=== PATIENT | male | born 1955 | race Caucasian/White ===

== ENCOUNTER 2023-05-19 22:50 | Inpatient (IN) | payer OTHER ==
[~2023-05-19] VITALS: Ht 177.8 cm; Wt 107.0 kg
[2023-05-19 22:54] VITALS: BP 58/35; PULSE 84; RESP 16; TEMP 97.8
[2023-05-19 23:05] VITALS: BP 111/67; PULSE 88; PULSE 90; RESP 22; O2SAT 99
[2023-05-19] MEDS ORDERED: NACL 0.9% 1,000 ML IV ONE (23:05)
[2023-05-19 23:25] LABS: BASOPHILS # (AUTO) 0.2 K/uL (0.00-0.22); BASOPHILS % (AUTO) 0.8 % (0.0-2.0); EOSINOPHILS # (AUTO) 0.3 K/uL (0-0.4); EOSINOPHILS % (AUTO) 1.4 % (0.0-4.0); HEMATOCRIT 22.7 % (36-52); HEMOGLOBIN 7.3 g/dL (12.0-18.0); LYMPHOCYTES # (AUTO) 0.7 K/uL (2.0-11.5); LYMPHOCYTES % (AUTO) 3.7 % (20.5-51.1); MEAN CORPUSCULAR HEMOGLOBIN 26 pg (27-31); MEAN CORPUSCULAR HGB CONC 32 g/dL (33-37); MONOCYTES # (AUTO) 0.6 K/uL (0.8-1.0); MONOCYTES % (AUTO) 3.1 % (1.7-9.3); NEUTROPHILS # (AUTO) 17.8 K/uL (1.8-7.7); PLATELET COUNT (AUTO) 617 K/uL (140-450); RED BLOOD CELL COUNT(AUTO) 2.76 MIL/uL (4.20-6.10); RED CELL DISTRIBUTION WIDTH 17.5 % (11.6-13.7); WHITE BLOOD COUNT (AUTO) 19.6 K/uL (4.8-10.8)
[2023-05-19 23:45] LABS: LACTIC ACID 1.8 mmol/L (0.4-2.0)
[2023-05-19 23:46] LABS: CARBON DIOXIDE 35.8 mmol/L (21-32); LIPASE 30 U/L (73-393)
[2023-05-19 23:47] LABS: CREATININE 0.5 mg/dL (0.6-1.3); TOTAL BILIRUBIN 0.3 mg/dL (0.0-1.0); TOTAL PROTEIN, SERUM 6.4 g/dL (6.4-8.2)
[2023-05-19 23:48] LABS: ALBUMIN 1.5 g/dL (3.4-5.0); ANION GAP 6.1 (8-16); POTASSIUM 3.9 mmol/L (3.5-5.1)
[2023-05-19 23:53] VITALS: PULSE 88; O2SAT 99
[2023-05-20] VITALS (18 sets, daily range): BP systolic 93–168; BP diastolic 52–94; PULSE 86–116; RESP 13–31; TEMP 97.3–99.9; O2SAT 95–100
[2023-05-20 00:47] LABS: BLOOD GAS BASE EXCESS 6.6 mmol/L (-2.0-2.0); BLOOD GAS HCO3 30.6 mmol/L (22-26); BLOOD GAS O2 SAT% 98.8 % (92.0-98.5); BLOOD GAS PCO2 41.4 mmHg (35-45); BLOOD GAS PH 7.486 (7.35-7.45); BLOOD GAS PO2 131.3 mmHg (75-100)
[2023-05-20 02:23] LABS: APPEARANCE,URINE CLEAR (CLEAR); BILIRUBIN,URINE NEGATIVE (NEGATIVE); BLOOD, URINE NEGATIVE (NEGATIVE); COLOR,URINE YELLOW (YELLOW); LEUKOCYTE ESTERASE ,URINE NEGATIVE (NEGATIVE); NITRITE, URINE NEGATIVE (NEGATIVE); PH,URINE 7.5 (5.0-9.0); PROTEIN,URINE TRACE (NEGATIVE); UGLUCOSE 3+ (NEGATIVE); UROBILINOGEN,URINE >=8.0 EU/dL (0.2 - 1)
[2023-05-20] MEDS ORDERED: PIPERACILLIN/TAZOBACTAM 3.375 GM in DEXTROSE 5% 50 ML IV ONE (02:40)
[2023-05-20] MEDS ORDERED: VANCOMYCIN 1,000 MG in DEXTROSE 5% 250 ML IV ONE (02:40)
[2023-05-20] MEDS ORDERED: PIPERACILLIN/TAZOBACTAM 3.375 GM VIAL IV ONE (02:54)
[2023-05-20] MEDS ORDERED: VANCOMYCIN 1,000 MG VIAL ONE (02:55)
[2023-05-20] MEDS ORDERED: ONDANSETRON 4 MG/2 ML VIAL IVP PRN (04:25)
[2023-05-20] MEDS ORDERED: NACL 0.9% 1,000 ML IV SCH (04:25)
[2023-05-20] MEDS: PIPERACILLIN/TAZOBACTAM 3.375 GM in DEXTROSE 5% 50 ML IV SCH ×3 (05:00→21:58)
[2023-05-20] MEDS: MIDODRINE 5 MG TAB GT SCH ×2 (13:00→18:14)
[2023-05-20] MEDS: ENOXAPARIN 40 MG/0.4 ML SYR SUBQ SCH (14:07)
[2023-05-20] MEDS ORDERED: FOAM DRESSING TP PRN (15:15)
[2023-05-20] MEDS ORDERED: NON ADHERENT DRESSING TP PRN (15:15)
[2023-05-20 15:39] LABS: ALBUMIN 1.5 g/dL (3.4-5.0); ANION GAP 11.5 (8-16); CALCIUM 8.6 mg/dL (8.5-10.1); CARBON DIOXIDE 30.1 mmol/L (21-32); CREATININE 0.3 mg/dL (0.6-1.3); POTASSIUM 3.6 mmol/L (3.5-5.1); TOTAL BILIRUBIN 0.5 mg/dL (0.0-1.0); TOTAL PROTEIN, SERUM 6.6 g/dL (6.4-8.2)
[2023-05-20 15:52] LABS: BASOPHILS % (AUTO) 0.2 % (0.0-2.0); EOSINOPHILS # (AUTO) 0.1 K/uL (0-0.4); EOSINOPHILS % (AUTO) 0.3 % (0.0-4.0); HEMATOCRIT 23.7 % (36-52); HEMOGLOBIN 7.5 g/dL (12.0-18.0); LYMPHOCYTES # (AUTO) 0.6 K/uL (2.0-11.5); LYMPHOCYTES % (AUTO) 3.1 % (20.5-51.1); MEAN CORPUSCULAR HEMOGLOBIN 26 pg (27-31); MEAN CORPUSCULAR HGB CONC 32 g/dL (33-37); MEAN CORPUSCULAR VOLUME 82.3 fL (80-94); MONOCYTES # (AUTO) 0.6 K/uL (0.8-1.0); MONOCYTES % (AUTO) 3.3 % (1.7-9.3); NEUTROPHILS % (AUTO) 93.1 % (42.2-75.2); PLATELET COUNT (AUTO) 571 K/uL (140-450); RED BLOOD CELL COUNT(AUTO) 2.88 MIL/uL (4.20-6.10); RED CELL DISTRIBUTION WIDTH 17.5 % (11.6-13.7); WHITE BLOOD COUNT (AUTO) 18.3 K/uL (4.8-10.8)
[2023-05-21] VITALS (19 sets, daily range): BP systolic 136–189; BP diastolic 64–95; PULSE 102–124; RESP 13–34; TEMP 97.1–98.7; O2SAT 97–100
[2023-05-21] MEDS: HYDRAGUARD CREAM TP SCH ×2 (01:00→13:29)
[2023-05-21] MEDS: PIPERACILLIN/TAZOBACTAM 3.375 GM in DEXTROSE 5% 50 ML IV SCH ×3 (04:42→20:35)
[2023-05-21 06:17] LABS: BASOPHILS % (AUTO) 0.2 % (0.0-2.0); EOSINOPHILS # (AUTO) 0.3 K/uL (0-0.4); EOSINOPHILS % (AUTO) 1.6 % (0.0-4.0); HEMATOCRIT 24.9 % (36-52); HEMOGLOBIN 7.9 g/dL (12.0-18.0); LYMPHOCYTES # (AUTO) 0.5 K/uL (2.0-11.5); LYMPHOCYTES % (AUTO) 2.7 % (20.5-51.1); MEAN CORPUSCULAR HEMOGLOBIN 26 pg (27-31); MEAN CORPUSCULAR HGB CONC 32 g/dL (33-37); MEAN CORPUSCULAR VOLUME 82.5 fL (80-94); MONOCYTES # (AUTO) 0.8 K/uL (0.8-1.0); MONOCYTES % (AUTO) 4.1 % (1.7-9.3); NEUTROPHILS # (AUTO) 18.5 K/uL (1.8-7.7); NEUTROPHILS % (AUTO) 91.4 % (42.2-75.2); PLATELET COUNT (AUTO) 602 K/uL (140-450); RED BLOOD CELL COUNT(AUTO) 3.02 MIL/uL (4.20-6.10); RED CELL DISTRIBUTION WIDTH 17.8 % (11.6-13.7); WHITE BLOOD COUNT (AUTO) 20.2 K/uL (4.8-10.8)
[2023-05-21 06:52] LABS: ALBUMIN 1.5 g/dL (3.4-5.0); ANION GAP 14.3 (8-16); CALCIUM 9.1 mg/dL (8.5-10.1); CARBON DIOXIDE 28.7 mmol/L (21-32); CREATININE 0.3 mg/dL (0.6-1.3); MAGNESIUM 1.3 mg/dL (1.8-2.4); TOTAL BILIRUBIN 0.5 mg/dL (0.0-1.0); TOTAL PROTEIN, SERUM 6.7 g/dL (6.4-8.2)
[2023-05-21] MEDS: MIDODRINE 5 MG TAB GT SCH ×2 (07:00→13:00)
[2023-05-21] MEDS: PANTOPRAZOLE 40 MG INJ VIAL IVP SCH (08:59)
[2023-05-21] MEDS: ENOXAPARIN 40 MG/0.4 ML SYR SUBQ SCH (08:59)
[2023-05-21] MEDS ORDERED: Z-GUARD PASTE TP ONE (10:58)
[2023-05-21] MEDS: FOAM DRESSING TP SCH (13:28)
[2023-05-21] MEDS: Z-GUARD PASTE TP SCH (13:30)
[2023-05-21] MEDS: NON ADHERENT DRESSING TP SCH (13:31)
[2023-05-21] MEDS ORDERED: POTASSIUM CHLORIDE 20% 40 MEQ/15 ML UDC GT ONE (16:15)
[2023-05-21] MEDS ORDERED: KCL 20 MEQ IN 100 mL PREMIX 100 ML IV ONE (16:15)
[2023-05-21] MEDS ORDERED: MAG SULF 2000 MG/WATER PREMIX 50 ML IV ONE ×2 (16:35→19:30)
[2023-05-21] MEDS ORDERED: hydrALAZINE 20 MG/ML VIAL IVP PRN (16:35)
[2023-05-21] MEDS ORDERED: POTASSIUM CHLORIDE 20% 40 MEQ/15 ML UDC ONE (17:54)
[2023-05-21] MEDS: ALBUTEROL SULFATE/IPRATROPIU 3 ML SOL IH SCH (19:38)
[2023-05-21] MEDS: LORazepam 2 MG/ML VIAL IVP PRN (20:16)
[2023-05-21] MEDS: BLOOD GLUCOSE MONITORING 1 DEV DEV FS SCH (20:33)
[2023-05-21] MEDS: HYDROcodone/APAP 5/325 MG 1 TAB TAB PO PRN (20:34)
[2023-05-21] MEDS: hydrALAZINE 20 MG/ML VIAL IVP PRN (21:20)
[2023-05-22] VITALS (18 sets, daily range): BP systolic 123–172; BP diastolic 38–89; PULSE 55–122; RESP 14–29; TEMP 96–99.3; O2SAT 92–100
[2023-05-22] MEDS: ALBUTEROL SULFATE/IPRATROPIU 3 ML SOL IH SCH ×4 (00:22→19:00)
[2023-05-22] MEDS: HYDRAGUARD CREAM TP SCH ×2 (01:14→13:11)
[2023-05-22] MEDS: PIPERACILLIN/TAZOBACTAM 3.375 GM in DEXTROSE 5% 50 ML IV SCH ×3 (04:17→20:24)
[2023-05-22] MEDS: HYDROcodone/APAP 5/325 MG 1 TAB TAB PO PRN (04:46)
[2023-05-22] MEDS: BLOOD GLUCOSE MONITORING 1 DEV DEV FS SCH ×4 (06:39→20:18)
[2023-05-22] MEDS: PANTOPRAZOLE 40 MG INJ VIAL IVP SCH (09:32)
[2023-05-22] MEDS: ENOXAPARIN 40 MG/0.4 ML SYR SUBQ SCH (09:34)
[2023-05-22] MEDS: INSULIN LISPRO SLIDING SCALE 100 UNITS/ML VIAL SUBQ PRN (11:52)
[2023-05-22] MEDS: hydrALAZINE 20 MG/ML VIAL IVP PRN (11:55)
[2023-05-22] MEDS: NON ADHERENT DRESSING TP SCH (13:11)
[2023-05-22] MEDS: Z-GUARD PASTE TP SCH (13:11)
[2023-05-22] MEDS: FOAM DRESSING TP SCH (13:11)
[2023-05-23] VITALS (16 sets, daily range): BP systolic 125–171; BP diastolic 44–90; PULSE 110–129; RESP 20–30; TEMP 97.8–98.9; O2SAT 95–100
[2023-05-23] MEDS: ALBUTEROL SULFATE/IPRATROPIU 3 ML SOL IH SCH ×4 (00:23→19:42)
[2023-05-23] MEDS: HYDRAGUARD CREAM TP SCH ×2 (01:02→13:00)
[2023-05-23] MEDS: HYDROcodone/APAP 5/325 MG 1 TAB TAB PO PRN (01:12)
[2023-05-23] MEDS: PIPERACILLIN/TAZOBACTAM 3.375 GM in DEXTROSE 5% 50 ML IV SCH ×3 (04:39→21:40)
[2023-05-23 05:42] LABS: MAGNESIUM 1.5 mg/dL (1.8-2.4); PHOSPHORUS 2.7 mg/dL (2.5-4.9)
[2023-05-23 05:44] LABS: ANION GAP 9.6 (8-16); CALCIUM 9.2 mg/dL (8.5-10.1); CARBON DIOXIDE 32.7 mmol/L (21-32); CREATININE 0.3 mg/dL (0.6-1.3); POTASSIUM 3.3 mmol/L (3.5-5.1)
[2023-05-23 05:47] LABS: BASOPHILS # (AUTO) 0.1 K/uL (0.00-0.22); BASOPHILS % (AUTO) 0.6 % (0.0-2.0); EOSINOPHILS # (AUTO) 0.4 K/uL (0-0.4); EOSINOPHILS % (AUTO) 2.5 % (0.0-4.0); HEMATOCRIT 23.3 % (36-52); HEMOGLOBIN 7.6 g/dL (12.0-18.0); LYMPHOCYTES # (AUTO) 0.6 K/uL (2.0-11.5); LYMPHOCYTES % (AUTO) 3.7 % (20.5-51.1); MEAN CORPUSCULAR HEMOGLOBIN 27 pg (27-31); MEAN CORPUSCULAR HGB CONC 33 g/dL (33-37); MEAN CORPUSCULAR VOLUME 81.8 fL (80-94); MONOCYTES # (AUTO) 0.8 K/uL (0.8-1.0); MONOCYTES % (AUTO) 5.2 % (1.7-9.3); NEUTROPHILS # (AUTO) 13.1 K/uL (1.8-7.7); PLATELET COUNT (AUTO) 574 K/uL (140-450); RED BLOOD CELL COUNT(AUTO) 2.85 MIL/uL (4.20-6.10); RED CELL DISTRIBUTION WIDTH 17.9 % (11.6-13.7); WHITE BLOOD COUNT (AUTO) 14.9 K/uL (4.8-10.8)
[2023-05-23] MEDS: BLOOD GLUCOSE MONITORING 1 DEV DEV FS SCH ×4 (06:36→21:38)
[2023-05-23] MEDS: hydrALAZINE 20 MG/ML VIAL IVP PRN (09:08)
[2023-05-23] MEDS: PANTOPRAZOLE 40 MG INJ VIAL IVP SCH (09:14)
[2023-05-23] MEDS ORDERED: POTASSIUM CHLORIDE 20% 40 MEQ/15 ML UDC PO SCH (10:00)
[2023-05-23] MEDS ORDERED: MAG SULF 2000 MG/WATER PREMIX 50 ML IV SCH (10:00)
[2023-05-23] MEDS: amLODIPine 5 MG TAB GT SCH (10:55)
[2023-05-23] MEDS: ENOXAPARIN 40 MG/0.4 ML SYR SUBQ SCH (10:57)
[2023-05-23] MEDS: INSULIN LISPRO SLIDING SCALE 100 UNITS/ML VIAL SUBQ PRN (12:29)
[2023-05-23] MEDS: NON ADHERENT DRESSING TP SCH (13:00)
[2023-05-23] MEDS: FOAM DRESSING TP SCH (13:00)
[2023-05-23] MEDS: Z-GUARD PASTE TP SCH (17:17)
[2023-05-24] VITALS (14 sets, daily range): BP systolic 118–157; BP diastolic 70–94; PULSE 112–145; RESP 20–35; TEMP 98.1–100.7; O2SAT 95–100
[2023-05-24] MEDS: ALBUTEROL SULFATE/IPRATROPIU 3 ML SOL IH SCH ×4 (00:37→19:32)
[2023-05-24] MEDS: HYDRAGUARD CREAM TP SCH ×2 (01:00→13:00)
[2023-05-24] MEDS: PIPERACILLIN/TAZOBACTAM 3.375 GM in DEXTROSE 5% 50 ML IV SCH ×3 (04:41→20:23)
[2023-05-24 05:50] LABS: BASOPHILS # (AUTO) 0.1 K/uL (0.00-0.22); BASOPHILS % (AUTO) 0.5 % (0.0-2.0); EOSINOPHILS # (AUTO) 0.2 K/uL (0-0.4); EOSINOPHILS % (AUTO) 1.5 % (0.0-4.0); HEMATOCRIT 25.2 % (36-52); LYMPHOCYTES # (AUTO) 0.7 K/uL (2.0-11.5); LYMPHOCYTES % (AUTO) 4.8 % (20.5-51.1); MEAN CORPUSCULAR HEMOGLOBIN 26 pg (27-31); MEAN CORPUSCULAR HGB CONC 32 g/dL (33-37); MEAN CORPUSCULAR VOLUME 82.1 fL (80-94); MONOCYTES # (AUTO) 0.7 K/uL (0.8-1.0); MONOCYTES % (AUTO) 4.3 % (1.7-9.3); NEUTROPHILS # (AUTO) 13.5 K/uL (1.8-7.7); NEUTROPHILS % (AUTO) 88.9 % (42.2-75.2); PLATELET COUNT (AUTO) 593 K/uL (140-450); RED BLOOD CELL COUNT(AUTO) 3.06 MIL/uL (4.20-6.10); RED CELL DISTRIBUTION WIDTH 17.6 % (11.6-13.7); WHITE BLOOD COUNT (AUTO) 15.2 K/uL (4.8-10.8)
[2023-05-24] MEDS: BLOOD GLUCOSE MONITORING 1 DEV DEV FS SCH ×4 (07:02→20:28)
[2023-05-24] MEDS: INSULIN LISPRO SLIDING SCALE 100 UNITS/ML VIAL SUBQ PRN (07:07)
[2023-05-24 08:41] LABS: MAGNESIUM 1.7 mg/dL (1.8-2.4); PHOSPHORUS 3.1 mg/dL (2.5-4.9)
[2023-05-24 08:48] LABS: ANION GAP 11.7 (8-16); CALCIUM 9.1 mg/dL (8.5-10.1); CARBON DIOXIDE 30.9 mmol/L (21-32); CREATININE 0.4 mg/dL (0.6-1.3); POTASSIUM 3.6 mmol/L (3.5-5.1)
[2023-05-24] MEDS ORDERED: MAG SULF 2000 MG/WATER PREMIX 50 ML IV SCH (09:00)
[2023-05-24] MEDS: amLODIPine 5 MG TAB GT SCH (09:11)
[2023-05-24] MEDS: PANTOPRAZOLE 40 MG INJ VIAL IVP SCH (09:11)
[2023-05-24] MEDS: ENOXAPARIN 40 MG/0.4 ML SYR SUBQ SCH (09:15)
[2023-05-24] MEDS: NON ADHERENT DRESSING TP SCH (13:00)
[2023-05-24] MEDS: FOAM DRESSING TP SCH (13:00)
[2023-05-24] MEDS: Z-GUARD PASTE TP SCH (13:00)
[2023-05-24] MEDS: LORazepam 2 MG/ML VIAL IVP PRN (15:50)
[2023-05-24] MEDS: ESCITALOPRAM 20 MG TAB GT SCH (15:50)
[2023-05-24] MEDS: ACETAMINOPHEN 325 MG TAB PO PRN (18:08)
[2023-05-24] MEDS: MELATONIN 3 MG TAB PO SCH (20:24)
[2023-05-24] MEDS: QUEtiapine FUMARATE 25 MG TAB GT SCH (20:24)
[2023-05-25] VITALS (15 sets, daily range): BP systolic 92–150; BP diastolic 50–84; PULSE 102–125; RESP 18–30; TEMP 97.7–100.3; O2SAT 91–100
[2023-05-25] MEDS: ALBUTEROL SULFATE/IPRATROPIU 3 ML SOL IH SCH ×4 (01:29→19:16)
[2023-05-25] MEDS: HYDRAGUARD CREAM TP SCH ×2 (01:46→13:00)
[2023-05-25] MEDS: PIPERACILLIN/TAZOBACTAM 3.375 GM in DEXTROSE 5% 50 ML IV SCH ×3 (04:38→20:49)
[2023-05-25 05:42] LABS: BASOPHILS # (AUTO) 0.1 K/uL (0.00-0.22); BASOPHILS % (AUTO) 0.4 % (0.0-2.0); EOSINOPHILS # (AUTO) 0.1 K/uL (0-0.4); EOSINOPHILS % (AUTO) 0.6 % (0.0-4.0); HEMATOCRIT 23.7 % (36-52); HEMOGLOBIN 7.5 g/dL (12.0-18.0); LYMPHOCYTES # (AUTO) 0.5 K/uL (2.0-11.5); LYMPHOCYTES % (AUTO) 3.1 % (20.5-51.1); MEAN CORPUSCULAR HEMOGLOBIN 26 pg (27-31); MEAN CORPUSCULAR HGB CONC 32 g/dL (33-37); MEAN CORPUSCULAR VOLUME 82.1 fL (80-94); MONOCYTES # (AUTO) 0.6 K/uL (0.8-1.0); MONOCYTES % (AUTO) 4.1 % (1.7-9.3); NEUTROPHILS # (AUTO) 13.3 K/uL (1.8-7.7); NEUTROPHILS % (AUTO) 91.8 % (42.2-75.2); PLATELET COUNT (AUTO) 521 K/uL (140-450); RED BLOOD CELL COUNT(AUTO) 2.89 MIL/uL (4.20-6.10); WHITE BLOOD COUNT (AUTO) 14.5 K/uL (4.8-10.8)
[2023-05-25 06:05] LABS: ANION GAP 8.8 (8-16); CARBON DIOXIDE 32.5 mmol/L (21-32); CREATININE 0.4 mg/dL (0.6-1.3); POTASSIUM 3.3 mmol/L (3.5-5.1)
[2023-05-25 06:06] LABS: MAGNESIUM 1.8 mg/dL (1.8-2.4); PHOSPHORUS 3.3 mg/dL (2.5-4.9)
[2023-05-25] MEDS: INSULIN LISPRO SLIDING SCALE 100 UNITS/ML VIAL SUBQ PRN (06:30)
[2023-05-25] MEDS: BLOOD GLUCOSE MONITORING 1 DEV DEV FS SCH ×4 (06:40→21:07)
[2023-05-25] MEDS: FINASTERIDE 5 MG TAB GT SCH (09:44)
[2023-05-25] MEDS: ESCITALOPRAM 20 MG TAB GT SCH (09:45)
[2023-05-25] MEDS: PANTOPRAZOLE 40 MG INJ VIAL IVP SCH (09:46)
[2023-05-25] MEDS: ENOXAPARIN 40 MG/0.4 ML SYR SUBQ SCH (09:53)
[2023-05-25] MEDS: amLODIPine 5 MG TAB GT SCH (09:57)
[2023-05-25] MEDS ORDERED: POTASSIUM CHLORIDE 10 MEQ TABER PO SCH (10:55)
[2023-05-25] MEDS ORDERED: POTASSIUM CHLORIDE 20% 40 MEQ/15 ML UDC GT SCH (11:15)
[2023-05-25] MEDS ORDERED: MAG SULF 2000 MG/WATER PREMIX 50 ML IV SCH (11:15)
[2023-05-25] MEDS ORDERED: ESCI20TA49 PO (11:48)
[2023-05-25] MEDS ORDERED: LOV40I SUBQ (12:42)
[2023-05-25] MEDS ORDERED: LANS15EC28 GT/PO (12:42)
[2023-05-25] MEDS ORDERED: CHOL500040 GT/PO (12:42)
[2023-05-25] MEDS ORDERED: DOCU50LI8 GT (12:42)
[2023-05-25] MEDS ORDERED: LIP80 GT/PO (12:42)
[2023-05-25] MEDS ORDERED: LISI40TA12 GT/PO (12:42)
[2023-05-25] MEDS ORDERED: METF-1253 PO (12:42)
[2023-05-25] MEDS ORDERED: MULT-1328 GT/PO (12:42)
[2023-05-25] MEDS ORDERED: EMPA25TA GT/PO (12:42)
[2023-05-25] MEDS ORDERED: INSU100V19 SQ (12:42)
[2023-05-25] MEDS ORDERED: INSU100V6 SQ (12:42)
[2023-05-25] MEDS ORDERED: ASCO500T95 GT/PO (12:42)
[2023-05-25] MEDS ORDERED: QUET50TA GT/PO (12:43)
[2023-05-25] MEDS ORDERED: FINA5TAB1 GT/PO (12:43)
[2023-05-25] MEDS ORDERED: ACET-8905 GT/PO (12:43)
[2023-05-25] MEDS ORDERED: PROM6.2589 PO (12:43)
[2023-05-25] MEDS ORDERED: ACET-1182 GT/PO (12:43)
[2023-05-25] MEDS ORDERED: MELA3TAB21 GT/PO (12:43)
[2023-05-25] MEDS ORDERED: ATI.5 PO (12:43)
[2023-05-25] MEDS ORDERED: METO25TA GT/PO (12:43)
[2023-05-25] MEDS: Z-GUARD PASTE TP SCH (13:00)
[2023-05-25] MEDS: NON ADHERENT DRESSING TP SCH (13:00)
[2023-05-25] MEDS: FOAM DRESSING TP SCH (13:00)
[2023-05-25] MEDS: HYDROcodone/APAP 5/325 MG 1 TAB TAB PO PRN (15:25)
[2023-05-25] MEDS: QUEtiapine FUMARATE 25 MG TAB GT SCH (20:36)
[2023-05-25] MEDS: ACETAMINOPHEN 325 MG TAB PO PRN (20:36)
[2023-05-25] MEDS: MELATONIN 3 MG TAB PO SCH (20:37)
[2023-05-26] VITALS (15 sets, daily range): BP systolic 108–127; BP diastolic 63–77; PULSE 104–131; RESP 16–29; TEMP 97.6–99.2; O2SAT 95–100
[2023-05-26] MEDS: HYDRAGUARD CREAM TP SCH ×2 (01:07→13:00)
[2023-05-26] MEDS: ALBUTEROL SULFATE/IPRATROPIU 3 ML SOL IH SCH ×4 (01:10→19:15)
[2023-05-26] MEDS: PIPERACILLIN/TAZOBACTAM 3.375 GM in DEXTROSE 5% 50 ML IV SCH ×3 (04:51→20:15)
[2023-05-26 05:43] LABS: BASOPHILS % (AUTO) 0.3 % (0.0-2.0); EOSINOPHILS # (AUTO) 0.3 K/uL (0-0.4); HEMATOCRIT 22.5 % (36-52); HEMOGLOBIN 7.1 g/dL (12.0-18.0); LYMPHOCYTES # (AUTO) 0.6 K/uL (2.0-11.5); LYMPHOCYTES % (AUTO) 4.9 % (20.5-51.1); MEAN CORPUSCULAR HEMOGLOBIN 26 pg (27-31); MEAN CORPUSCULAR HGB CONC 32 g/dL (33-37); MEAN CORPUSCULAR VOLUME 81.6 fL (80-94); MONOCYTES # (AUTO) 0.6 K/uL (0.8-1.0); MONOCYTES % (AUTO) 4.6 % (1.7-9.3); NEUTROPHILS # (AUTO) 11.3 K/uL (1.8-7.7); NEUTROPHILS % (AUTO) 88.2 % (42.2-75.2); PLATELET COUNT (AUTO) 520 K/uL (140-450); RED BLOOD CELL COUNT(AUTO) 2.76 MIL/uL (4.20-6.10); RED CELL DISTRIBUTION WIDTH 18.2 % (11.6-13.7); WHITE BLOOD COUNT (AUTO) 12.8 K/uL (4.8-10.8)
[2023-05-26 06:06] LABS: ANION GAP 7.2 (8-16); CALCIUM 8.8 mg/dL (8.5-10.1); CARBON DIOXIDE 31.6 mmol/L (21-32); CREATININE 0.4 mg/dL (0.6-1.3); POTASSIUM 3.8 mmol/L (3.5-5.1)
[2023-05-26 06:08] LABS: MAGNESIUM 1.9 mg/dL (1.8-2.4); PHOSPHORUS 3.5 mg/dL (2.5-4.9)
[2023-05-26] MEDS: BLOOD GLUCOSE MONITORING 1 DEV DEV FS SCH ×4 (06:32→20:15)
[2023-05-26] MEDS: FINASTERIDE 5 MG TAB GT SCH (09:11)
[2023-05-26] MEDS: amLODIPine 5 MG TAB GT SCH (09:12)
[2023-05-26] MEDS: PANTOPRAZOLE 40 MG INJ VIAL IVP SCH (09:12)
[2023-05-26] MEDS: ESCITALOPRAM 20 MG TAB GT SCH (09:12)
[2023-05-26] MEDS: ENOXAPARIN 40 MG/0.4 ML SYR SUBQ SCH (09:13)
[2023-05-26] MEDS ORDERED: PIPE1PDS28 IV (10:26)
[2023-05-26] MEDS: INSULIN LISPRO SLIDING SCALE 100 UNITS/ML VIAL SUBQ PRN ×2 (11:22→16:39)
[2023-05-26] MEDS ORDERED: MAG SULF 2000 MG/WATER PREMIX 50 ML IV SCH (12:00)
[2023-05-26] MEDS ORDERED: POTASSIUM CHLORIDE 20% 40 MEQ/15 ML UDC PO SCH (12:00)
[2023-05-26] MEDS: Z-GUARD PASTE TP SCH (13:00)
[2023-05-26] MEDS: FOAM DRESSING TP SCH (13:00)
[2023-05-26] MEDS: NON ADHERENT DRESSING TP SCH (13:00)
[2023-05-26] MEDS: QUEtiapine FUMARATE 25 MG TAB GT SCH (20:15)
[2023-05-26] MEDS: MELATONIN 3 MG TAB PO SCH (20:15)
[2023-05-27] VITALS (15 sets, daily range): BP systolic 106–145; BP diastolic 50–87; PULSE 101–128; RESP 18–29; TEMP 97.7–98.9; O2SAT 93–100
[2023-05-27] MEDS: ALBUTEROL SULFATE/IPRATROPIU 3 ML SOL IH SCH ×4 (00:28→18:35)
[2023-05-27] MEDS: HYDRAGUARD CREAM TP SCH ×2 (01:43→13:06)
[2023-05-27] MEDS: PIPERACILLIN/TAZOBACTAM 3.375 GM in DEXTROSE 5% 50 ML IV SCH ×2 (04:43→13:00)
[2023-05-27] MEDS: ACETAMINOPHEN 325 MG TAB PO PRN (04:49)
[2023-05-27 05:25] LABS: ANION GAP 10.4 (8-16); CALCIUM 8.6 mg/dL (8.5-10.1); CARBON DIOXIDE 29.2 mmol/L (21-32); CREATININE 0.4 mg/dL (0.6-1.3); POTASSIUM 3.6 mmol/L (3.5-5.1)
[2023-05-27 05:26] LABS: BASOPHILS % (AUTO) 0.3 % (0.0-2.0); EOSINOPHILS # (AUTO) 0.2 K/uL (0-0.4); EOSINOPHILS % (AUTO) 1.5 % (0.0-4.0); HEMATOCRIT 22.7 % (36-52); HEMOGLOBIN 7.2 g/dL (12.0-18.0); LYMPHOCYTES # (AUTO) 0.5 K/uL (2.0-11.5); LYMPHOCYTES % (AUTO) 4.4 % (20.5-51.1); MAGNESIUM 1.7 mg/dL (1.8-2.4); MEAN CORPUSCULAR HEMOGLOBIN 26 pg (27-31); MEAN CORPUSCULAR HGB CONC 31 g/dL (33-37); MEAN CORPUSCULAR VOLUME 81.1 fL (80-94); MONOCYTES # (AUTO) 0.5 K/uL (0.8-1.0); MONOCYTES % (AUTO) 4.3 % (1.7-9.3); NEUTROPHILS # (AUTO) 10.8 K/uL (1.8-7.7); NEUTROPHILS % (AUTO) 89.5 % (42.2-75.2); PHOSPHORUS 3.6 mg/dL (2.5-4.9); PLATELET COUNT (AUTO) 499 K/uL (140-450); RED BLOOD CELL COUNT(AUTO) 2.81 MIL/uL (4.20-6.10); RED CELL DISTRIBUTION WIDTH 18.2 % (11.6-13.7)
[2023-05-27] MEDS: INSULIN LISPRO SLIDING SCALE 100 UNITS/ML VIAL SUBQ PRN ×2 (06:33→12:41)
[2023-05-27] MEDS: BLOOD GLUCOSE MONITORING 1 DEV DEV FS SCH ×3 (06:33→16:30)
[2023-05-27] MEDS ORDERED: MAG SULF 2000 MG/WATER PREMIX 50 ML IV SCH (07:15)
[2023-05-27] MEDS ORDERED: POTASSIUM CHLORIDE 20% 40 MEQ/15 ML UDC GT SCH (07:15)
[2023-05-27] MEDS: PANTOPRAZOLE 40 MG INJ VIAL IVP SCH (08:16)
[2023-05-27] MEDS: amLODIPine 5 MG TAB GT SCH (08:16)
[2023-05-27] MEDS: ESCITALOPRAM 20 MG TAB GT SCH (08:16)
[2023-05-27] MEDS: FINASTERIDE 5 MG TAB GT SCH (08:16)
[2023-05-27] MEDS: ENOXAPARIN 40 MG/0.4 ML SYR SUBQ SCH (08:18)
[2023-05-27] MEDS ORDERED: ROC1PM IV (10:59)
[2023-05-27] MEDS: FOAM DRESSING TP SCH (13:05)
[2023-05-27] MEDS: Z-GUARD PASTE TP SCH (13:05)
[2023-05-27] MEDS: NON ADHERENT DRESSING TP SCH (13:05)
== END 2023-05-27 19:35 | DRG 207 ==
LOC: MED 22:50 → MMU 05-20 04:31 → MIC 05-20 06:14 → MTU 05-21 18:48
PROVIDERS: ADMIT Internal Medicine; ATTEND Internal Medicine
PROC: 5A1955Z Respiratory Ventilation, Greater than 96 Consecutive Hours (ICD-10-PCS; principal; 2023-05-20)
DX: J69.0 Pneumonitis due to inhalation of food and vomit (principal); E43 Unspecified severe protein-calorie malnutrition; J96.21 Acute and chronic respiratory failure with hypoxia; G93.41 Metabolic encephalopathy; E87.1 Hypo-osmolality and hyponatremia; R65.10 Systemic inflammatory response syndrome (SIRS) of non-infectious origin without acute organ dysfunction; N18.2 Chronic kidney disease, stage 2 (mild); Z66 Do not resuscitate; I12.9 Hypertensive chronic kidney disease with stage 1 through stage 4 chronic kidney disease, or unspecified chronic kidney disease; E11.22 Type 2 diabetes mellitus with diabetic chronic kidney disease; R13.10 Dysphagia, unspecified; F32.A Depression, unspecified; E87.6 Hypokalemia; E78.5 Hyperlipidemia, unspecified; C80.1 Malignant (primary) neoplasm, unspecified; D53.9 Nutritional anemia, unspecified; D72.829 Elevated white blood cell count, unspecified; E83.42 Hypomagnesemia; Z68.33 Body mass index [BMI] 33.0-33.9, adult
CPT/HCPCS: 36415; 36600; 70450; 71045; 80048; 80053; 81003; 82803; 82948; 83605; 83690; 83735; 83880; 84100; 84484; 85025; 87040; 87070; 87081; 87086; 87205; 93005; 94002; 94003; 94640; 96374; 96375; 99291; C9113; J0360; J1650; J1815; J2060; J2543; J3370; J3475; J3480; J7060; Q0092